=== PATIENT | male | born 1935 | race Caucasian/White ===

== ENCOUNTER 2017-06-21 13:15 | Emergency (ER) | payer MEDICARE, BC ==
[~2017-06-21] VITALS: Ht 182.9 cm; Wt 136.0 kg
[2017-06-21] MEDS ORDERED: DIGOXIN0.125 MG PO (13:45)
[2017-06-21] MEDS ORDERED: FOLIC ACID1 M1 PO (13:46)
[2017-06-21] MEDS ORDERED: METOPROL TAR25 MG PO (13:46)
[2017-06-21] MEDS ORDERED: PROZAC20 MG PO (13:46)
[2017-06-21] MEDS ORDERED: ALTOPREV40 MG PO (13:48)
[2017-06-21] MEDS ORDERED: WARFARIN3 MG PO ×2 (13:49)
[2017-06-21 14:24] LABS: HEMATOCRIT 39.5 % (39.0-50.0); HEMOGLOBIN 12.8 g/dl (14.0-18.0); IMMATURE GRANULOCYTES 0.6 % (0.0-1.0); MEAN CELL VOLUME 102.6 fL CALC (80.0-100.0); MEAN CORPUSCULAR HGB 33.2 pG CALC (26.0-32.0); MEAN CORPUSCULAR HGB CONC 32.4 g/L CALC (32.0-36.0); NEUT# 5.21 thou/uL (1.82-7.42); RED BLOOD COUNT 3.85 mill/uL (4.70-6.10); RED CELL DISTRI WIDTH 14.8 % (11.5-15.5)
[2017-06-21 14:36] LABS: INTERNATIONAL NORMALIZED RATIO 2.8 RATIO (0.7-1.3); PROTHROMBIN TIME 32.6 SECONDS (9.0-12.5)
[2017-06-21 14:38] LABS: ALBUMIN 3.6 g/dL (3.2-5.0); ALKALINE PHOSPHATASE 81 u/l (38-126); ANION GAP 16 (6-22 (CALC)); BILIRUBIN, TOTAL 1.7 mg/dL (0.0-1.4); BUN 15 mg/dL (8-23); BUN/CREATININE RATIO 13 (12-20 (CALC)); CALCIUM 8.7 mg/dL (8.4-10.2); CARBON DIOXIDE 26 mmol/l (22-30); CHLORIDE 101 mmol/l (95-108); CREATININE 1.2 mg/dL (0.7-1.3); GFR 58 ML/MIN (>=60 (CALC)); GFR FOR AFR.AMER. > 60 ML/MIN (>=60 (CALC)); GLUCOSE 142 mg/dL (82-115); POTASSIUM 4.3 mmol/l (3.5-5.1); SGOT/AST 24 u/l (19-48); SGPT/ALT 33 u/l (11-66); SODIUM 138 mmol/l (137-146); TOTAL PROTEIN 6.7 g/dL (6.3-8.2)
[2017-06-21 14:50] LABS: MYOGLOBIN 64 ng/mL (0 - 121)
[2017-06-21 18:24] VITALS: BP 97/64
== END 2017-06-21 18:36 | disposition home or self-care (01) ==
LOC: ED 13:15
PROVIDERS: Emergency Medicine
DX: R60.0 Localized edema (principal); R58 Hemorrhage, not elsewhere classified; F32.9 Major depressive disorder, single episode, unspecified; I48.2 Chronic atrial fibrillation; I11.0 Hypertensive heart disease with heart failure; I50.42 Chronic combined systolic (congestive) and diastolic (congestive) heart failure; E66.01 Morbid (severe) obesity due to excess calories; G47.33 Obstructive sleep apnea (adult) (pediatric); E11.9 Type 2 diabetes mellitus without complications; E78.5 Hyperlipidemia, unspecified; I87.2 Venous insufficiency (chronic) (peripheral); Z79.84 Long term (current) use of oral hypoglycemic drugs; Z79.01 Long term (current) use of anticoagulants; Z93.3 Colostomy status; Z91.14 Patient's other noncompliance with medication regimen; Z85.038 Personal history of other malignant neoplasm of large intestine